=== PATIENT | female | born 1985 | race Caucasian/White ===

== ENCOUNTER 2016-07-08 04:09 | Emergency (ER) | payer MEDICAID ==
[2016-07-08] MEDS ORDERED: SODIUM CHLORIDE 0.9% 3 ML FLUSH FLUSH PRN (04:56)
[2016-07-08] MEDS ORDERED: NS 1,000 ML IV ONE ×2 (04:56→08:32)
[2016-07-08] MEDS ORDERED: MORPHINE 4 MG/ML INJECTION IV ONE ×2 (04:56→06:31)
[2016-07-08] MEDS ORDERED: ONDANSETRON HCL 4 MG/2 ML VIAL IV STA (04:56)
[2016-07-08] MEDS ORDERED: Pharmacy Review for Metformin - IV Contrast Given SCH (05:00)
[2016-07-08 05:01] LABS: LEUKOCYTES/URINE NEG (NEGATIVE); NITRITE/URINE NEG (NEGATIVE); URINE OCCULT BLOOD NEG (NEG/TRACE)
[2016-07-08 05:04] VITALS: TEMP 98.2; BMI 26.2
--- NOTE | 2016-07-08 05:08 | EDPRACDOC ---
- General Information Information Source: Patient, Surg Rn Mode Of Arrival: Ambulance - History of Present Illness Pain Location: Reports: RUQ, Periumbilical Pain Context: Reports: Spontaneous Pain Severity: Moderate Pain Quality: Reports: Aching Pain Radiation: Reports: Shoulder (RIGHT), Back Female Associated Signs & Symptoms: Reports: Nausea. Denies: Diarrhea, Dysuria , Fever Oral Intake: Normal <Paramjit Perez - Last Filed: 07/08/16 06:25> <Triston Orta - Last Filed: 07/08/16 10:36> - General Information Stated Complaint: BACK PAIN Time Seen by Provider: 07/08/16 04:50 Home Medications: Home Medications Escitalopram Oxalate [Lexapro] 10 mg PO DAILY 07/08/16 Norgestimate-Ethinyl Estradiol [Sprintec] 1 tab PO DAILY 07/08/16 Ondansetron [Zofran Odt] 4 mg PO Q6H PRN #20 tab.rapdis 07/08/16 Oxycodone HCl/Acetaminophen [Percocet 5-325 mg Tablet] 1 each PO Q4 #20 tablet 07/08/16 Allergies/Adverse Reactions: Allergies Allergy/AdvReac Type Severity Reaction Status Date / Time cefaclor [From Ceclor] Allergy Unknown UNKNOWN Verified 09/17/14 13:42 - History of Present Illness HPI: PT PRESENTS WITH ABDOMINAL PAIN. PRIMARILY RUQ BUT NOW ALSO LOWER ABDOMEN WELL. SHE HAD OUTPATIENT ULTRASOUND A FEW DAYS AGO WHICH SHOWED GALLSTONES BUT NO FLUID OR GB WALL THICKENING. (Paramjit Perez) ED Past Medical History - History Reviewed Yes Nurses notes reviewed and agree except as marked No Past Medical History: Yes Patient has no past medical history - Social Medical History Smoking Status: Never smoker Lives With: Family Lives In: Home <Paramjit Perez - Last Filed: 07/08/16 06:25> EDM Review of Systems - Review of Systems ROS Negative Except as Marked: Yes All systems reviewed and were negative except as marked Constitutional: Fatigue. negative: Fever Respiratory: negative: Shortness of Breath Cardiovascular: negative: Chest Pain Gastrointestinal: Nausea, Pain (RUQ INITIALLY; NOW SPREAD TO LOWER ABDOMEN.). negative: Diarrhea, Vomiting <Paramjit Perez - Last Filed: 07/08/16 06:25> - Physical Exam Constitutional: Alert Oriented to: Time, Person, Place - HEENT Head: negative: Deformity, Laceration Eye Exam: negative: Conjunctival Injection, Pale Conjunctiva Oropharynx: negative: Membranes Dry Nose: negative: Congestion, Discharge Neck: negative: Limited ROM - Respiratory/Cardiovascular Respiratory: Normal - CTA. negative: Accessory Muscle Use, Diminished, Tachypnea Cardiovascular: negative: Bradycardia, Tachycardia, Irregular - GI Auscultation: Normal Palpation: Normal Tenderness: Moderate, Guarding, RUQ, Suprapubic, Periumbilical - Musculoskeletal Extremities: Radial Pulse (PALPABLE) - Integumentary Skin: Warm, Dry. negative: Rash - Neurologic Memory Impaired: Normal Motor Function: Normal Mood Description: Anxious, Appropriate Thought: Coherent Perception: Normal <Paramjit Perez - Last Filed: 07/08/16 06:25> - Results 07/08/16 05:15 07/08/16 05:15 <Paramjit Perez - Last Filed: 07/08/16 06:25> - Results 07/08/16 05:15 07/08/16 05:15 <rTiston Orta - Last Filed: 07/08/16 10:36> - Results WBC 7.0 xk/uL (3.8-10.8) 07/08/16 05:15 RBC 4.92 xM/uL (4.20-5.40) 07/08/16 05:15 Hgb 13.5 g/dL (12.0-16.0) 07/08/16 05:15 Hct 40.2 % (36-47) 07/08/16 05:15 MCV 82 fL (81-99) 07/08/16 05:15 MCH 27.4 pg (27-32) 07/08/16 05:15 MCHC 33.5 g/dl (33-36) 07/08/16 05:15 RDW 16.0 % (11.5-14.5) H 07/08/16 05:15 Plt Count 438 xk/uL (130-400) H 07/08/16 05:15 MPV 7.2 fL (7.4-10.4) L 07/08/16 05:15 Neut % (Auto) 57.2 % (45-76) 07/08/16 05:15 Lymph % (Auto) 34.9 % (17-44) 07/08/16 05:15 Dickson % (Auto) 4.9 % (3-10) 07/08/16 05:15 Eos % (Auto) 2.1 % (0-5) 07/08/16 05:15 Baso % (Auto) 0.9 % (0-2) 07/08/16 05:15 Absolute Neuts (auto) 3.99 xk/uL (1.7-8.2) 07/08/16 05:15 Absolute Lymphs (auto) 2.38 xk/uL (0.65-4.75) 07/08/16 05:15 Sodium 140 mEq/L (137-146) 07/08/16 05:15 Potassium 3.7 mEq/L (3.5-5.1) 07/08/16 05:15 Chloride 104 mEq/L (98-107) 07/08/16 05:15 Carbon Dioxide 23 mMOL/L (22-33) 07/08/16 05:15 Anion Gap 17 mEq/L (8-16) H 07/08/16 05:15 BUN 8 MG/DL (7-17) 07/08/16 05:15 Creatinine 0.60 MG/DL (0.52-1.04) 07/08/16 05:15 Estimated GFR (MDRD) > 60 mL/min (>=60) 07/08/16 05:15 Glucose 95 MG/DL (70-99) 07/08/16 05:15 Calculated Osmolality 267 MOs/Kg (270-290) L 07/08/16 05:15 Calcium 9.5 MG/DL (8.4-10.2) 07/08/16 05:15 Total Bilirubin 0.7 MG/DL (0.2-1.3) 07/08/16 05:15 AST 42 IU/L (14-36) H 07/08/16 05:15 ALT 70 IU/L (9-52) H 07/08/16 05:15 Alkaline Phosphatase 129 IU/L (38-126) H 07/08/16 05:15 Total Protein 7.8 G/DL (6.3-8.2) 07/08/16 05:15 Albumin 4.5 G/DL (3.5-5.0) 07/08/16 05:15 Lipase 37 U/L (23-300) 07/08/16 05:15 Urine Color Yellow 07/08/16 04:50 Urine Clarity Clear 07/08/16 04:50 Urine pH 7.0 (5.0-8.0) 07/08/16 04:50 Ur Specific [place] 1.005 (1.003-1.035) 07/08/16 04:50 Urine Protein Neg (NEG/TRACE) 07/08/16 04:50 Urine Glucose (UA) Neg (NEGATIVE) 07/08/16 04:50 Urine Ketones 1+ (NEGATIVE) H 07/08/16 04:50 Urine Occult Blood Neg (NEG/TRACE) 07/08/16 04:50 Urine Nitrite Neg (NEGATIVE) 07/08/16 04:50 Urine Bilirubin Neg (NEGATIVE) 07/08/16 04:50 Urine Urobilinogen <2.0 MG/DL (0-1) 07/08/16 04:50 Ur Leukocyte Esterase Neg (NEGATIVE) 07/08/16 04:50 Ur Epithelial Cells 2+ 07/08/16 04:50 Urine Bacteria Few (NEG/FEW) 07/08/16 04:50 Urine Test Neg (NEGATIVE) 07/08/16 04:50 Lab Results 07/08/16 07/08/16 07/08/16 05:15 05:15 04:50 WBC 7.0 RBC 4.92 Hgb 13.5 Hct 40.2 MCV 82 MCH 27.4 MCHC 33.5 RDW 16.0 H Plt Count 438 H MPV 7.2 L Neut % (Auto) 57.2 Lymph % (Auto) 34.9 Dickson % (Auto) 4.9 Eos % (Auto) 2.1 Baso % (Auto) 0.9 Absolute Neuts (auto) 3.99 Absolute Lymphs (auto) 2.38 Sodium 140 Potassium 3.7 Chloride 104 Carbon Dioxide 23 Anion Gap 17 H BUN 8 Creatinine 0.60 Estimated GFR (MDRD) > 60 Glucose 95 Calculated Osmolality 267 L Calcium 9.5 Total Bilirubin 0.7 AST 42 H ALT 70 H Alkaline Phosphatase 129 H Total Protein 7.8 Albumin 4.5 Lipase 37 Urine Color Yellow Urine Clarity Clear Urine pH 7.0 Ur Specific [place] 1.005 Urine Protein Neg Urine Glucose (UA) Neg Urine Ketones 1+ H Urine Occult Blood Neg Urine Nitrite Neg Urine Bilirubin Neg Urine Urobilinogen <2.0 Ur Leukocyte Esterase Neg Ur Epithelial Cells 2+ Urine Bacteria Few Urine Test 07/08/16 04:50 WBC RBC Hgb Hct MCV MCH MCHC RDW Plt Count MPV Neut % (Auto) Lymph % (Auto) Dickson % (Auto) Eos % (Auto) Baso % (Auto) Absolute Neuts (auto) Absolute Lymphs (auto) Sodium Potassium Chloride Carbon Dioxide Anion Gap BUN Creatinine Estimated GFR (MDRD) Glucose Calculated Osmolality Calcium Total Bilirubin AST ALT Alkaline Phosphatase Total Protein Albumin Lipase Urine Color Urine Clarity Urine pH Ur Specific [place] Urine Protein Urine Glucose (UA) Urine Ketones Urine Occult Blood Urine Nitrite Urine Bilirubin Urine Urobilinogen Ur Leukocyte Esterase Ur Epithelial Cells Urine Bacteria Urine Test Neg (Paramjit Perez) (Triston Orta) - Departure Yes I personally saw and evaluated the patient. Disposition: Home Education/Counseling Given To: Patient, Family Member Education/Counseling Given Regarding: Diagnosis, Treatment, Prognosis, Follow Up <Paramjit Perez - Last Filed: 07/08/16 06:25> - Physician Consulted Surgery Time Called: 10:36 Provider Called: Salo Negrete Time Shift Supervisor Returned Call: 10:36 (WILL SEE IN OFFICE) <Triston Orta - Last Filed: 07/08/16 10:36> - Departure Condition: Stable Final Diagnosis: Abdominal pain, Biliary colic Cholelithiasis Qualifiers: Cholelithiasis location: gallbladder Cholecystitis presence: without cholecystitis Biliary obstruction: without biliary obstruction Qualified Code(s) : K80.20 - Calculus of gallbladder without cholecystitis without obstruction Instructions: Abdominal Pain in Women, Non-pharmacological Pain Management Therapies for Adults (GEN), Abdominal Pain (ED) Referrals: None,No Provider [Primary Care Provider] - One Week Salo Negrete MD [Staff Physician] - One Week Prescriptions: Ondansetron [Zofran Odt] 4 mg PO Q6H PRN #20 tab.rapdis PRN Reason: Nausea/Vomiting Oxycodone HCl/Acetaminophen [Percocet 5-325 mg Tablet] 1 each PO Q4 #20 tablet Additional Instructions: NO FATTY FOODS
[2016-07-08 05:27] LABS: AUTOMATED BASOPHIL 0.9 % (0-2); AUTOMATED EOSINOPHIL 2.1 % (0-5); AUTOMATED LYMPH 34.9 % (17-44); AUTOMATED MONOCYTE 4.9 % (3-10); AUTOMATED NEUTROPHIL 57.2 % (45-76); MPV 7.2 fL (7.4-10.4)
[2016-07-08 05:43] LABS: BLOOD UREA NITROGEN 8 MG/DL (7-17); CALCIUM 9.5 MG/DL (8.4-10.2); CALCULATED OSMOLALITY 267 MOs/Kg (270-290); CHLORIDE 104 mEq/L (98-107); GLUCOSE 95 MG/DL (70-99); SODIUM LEVEL 140 mEq/L (137-146); TOTAL PROTEIN 7.8 G/DL (6.3-8.2)
[2016-07-08] MEDS ORDERED: SODIUM CHLORIDE 0.9% 3 ML FLUSH FLUSH SCH (06:00)
--- NOTE | 2016-07-08 06:09 | DIRPT ---
CLINICAL DATA: Acute onset of right upper quadrant and epigastric abdominal pain. Initial encounter. EXAM: CT ABDOMEN AND PELVIS WITH CONTRAST TECHNIQUE: Multidetector CT imaging of the abdomen and pelvis was performed using the standard protocol following bolus administration of intravenous contrast. CONTRAST: 100 mL of Isovue 370 IV contrast COMPARISON: Right upper quadrant ultrasound performed 07/06/2016, and CT of the abdomen and pelvis from 12/17/2007 FINDINGS: The visualized lung bases are clear. The liver and spleen are unremarkable in appearance. The gallbladder is within normal limits. The pancreas and adrenal glands are unremarkable. The kidneys are unremarkable in appearance. There is no evidence of hydronephrosis. No renal or ureteral stones are seen. No perinephric stranding is appreciated. No free fluid is identified. The small bowel is unremarkable in appearance. The stomach is within normal limits. No acute vascular abnormalities are seen. The appendix is normal in caliber, without evidence of appendicitis. The colon is partially filled with stool and fluid, and is unremarkable in appearance. The bladder is mildly distended and grossly unremarkable. The uterus is unremarkable in appearance. The ovaries are relatively symmetric. No suspicious adnexal masses are seen. No inguinal lymphadenopathy is seen. No acute osseous abnormalities are identified. IMPRESSION: Unremarkable contrast-enhanced CT of the abdomen and pelvis. Electronically Signed By: Eemka Schwarz M.D. On: 07/08/2016 06:06
[2016-07-08 06:43] VITALS: BP 122/62; PULSE 102
[2016-07-08] MEDS ORDERED: HYDROmorphone 1 MG INJECTION IV ONE (08:32)
--- NOTE | 2016-07-08 10:19 | DIRPT ---
CLINICAL DATA: Right upper quadrant pain and back pain. EXAM: US ABDOMEN LIMITED - RIGHT UPPER QUADRANT COMPARISON: Ultrasound dated 07/06/2016 FINDINGS: Gallbladder: Numerous small gallstones. No gallbladder wall thickening. Negative sonographic Daley's sign. Common bile duct: Diameter: 3 mm, normal. Liver: No focal lesion identified. Within normal limits in parenchymal echogenicity. IMPRESSION: Numerous tiny gallstones. Otherwise normal exam. No change since the prior exam. Electronically Signed By: Liam Torres M.D. On: 07/08/2016 10:17
== END 2016-07-08 10:48 | disposition home or self-care (01) ==
LOC: ED 04:09
DX: K80.20 Calculus of gallbladder without cholecystitis without obstruction (principal)
CPT/HCPCS: 36415; 74177; 76705; 80053; 81001; 81025; 83690; 85025; 96361; 96374; 96375; 96376; 99284; A9698; J1170; J2270; J2405

== ENCOUNTER → 2016-07-11 | Day surgery (SDC) | payer MEDICAID ==
[2016-07-08 05:04] VITALS: BMI 26.2
[~2016-07-11] MED LIST: BUPIVACAINE 0.25%-EPINEPHRINE 1:200,000 30 ML ONE; CEFAZOLIN 1 GM VIAL ONE; DEXAMETHASONE 4 MG/ML VIAL IV ONE; FENTANYL 100 MCG/2 ML VIAL IV ONE; FENTANYL 100 MCG/2 ML VIAL IV PRN; FENTANYL 100 MCG/2 ML VIAL ONE; HYDROmorphone 1 MG INJECTION IV PRN; ISOVUE-300 (61%) 50 ML ONE; KETOROLAC TROMETH 30 MG/ML VIAL IM ONE; LABETALOL 20 MG/4 ML SYRINGE IV PRN; LIDOCAINE 100 MG PFS IV ONE; MEPERIDINE 25 MG/ML TUBEX IV PRN; MIDAZOLAM 2 MG/2 ML VIAL IV ONE; ONDANSETRON HCL 4 MG ODT TAB PO PRN; ONDANSETRON HCL 4 MG/2 ML VIAL IV ONE; ONDANSETRON HCL 4 MG/2 ML VIAL IV PRN; OXYCODONE HCL 5 MG TABLET ONE; PHENYLEPHRINE 10 MG/ML VIAL IC ONE; PROMETHAZINE 25 MG/ML VIAL IV PRN; PROPOFOL 200 MG/20 ML VIAL IV ONE; ROCURONIUM 50 MG/5 ML VIAL IV ONE; SUCCINYLCHOLINE 20 MG/1 ML INJ 10 ML MDV IV ONE; hydrALAZINE 20 MG/ML VIAL IV PRN
--- NOTE | 2016-07-11 11:49 | SC.ANESPOS ---
Post-Anesthesia Note LOC: [facility] Calling Post-Anesthesia Assessment: Awake, Returned to Baseline, Hemodynamically Stable , Pain Control Adequate Phase I & II Recovery Complete: Yes Apparent Anesthesia Complication: No : N PACU Discharge Time: 15:00 - Vital Signs Blood Pressure: 123/65 Pulse: 84 Resp Rate: 18 O2 Sat: 98 Temp: 97.4 F - Comments Anesthesia Discharge Time Report Time 15:00
--- NOTE | 2016-07-11 11:52 | HIM.ANES ---
Anesthesia Evaluation & Plan Diagnoses: CALCULUS OF GALLBLADDER W CHRONIC CHOLECYST W/O OBSTRUCTION (07/11/16) NAUSEA (07/11/16) - Focused Review of Systems Cardiac History: No: Hx Cardiac Disorders HEENT: Yes: Hx Vision Problem (PRESCRIPTION GLASSES), Other HEENT Problems Hx Other HEENT Surgery: DENTAL EXTRACTIONS Gastrointestinal: Yes: Hx Gastroesophageal Reflux Disease (CONTROLLED WITH PRN OTC MEDICATION), Hx Gastrointestinal Disorders Neurological/Musculoskeletal: No: Hx Neurological Disorders Psychological: Yes Hx Depression (POSTPARTEM DEPRESSION), Yes Hx Mental/ Emotional Disorders Blood/Autoimmune: No: Hx AIDS, Hx Hepatitis (type) Smoking Status: Never smoker Other Surgical History: DENTAL EXTRACTIONS C SECTION 01/02/2016 - Focused Physical Exam NPO since: after Midnight Mallampati: Class II Thyromental Distance: Greater than 3 Neck: Full Range of Motion Dental: Normal - no significant findings, Other (Prominent Upper Incisors) Cardiovascular/Chest: Normal Respiratory: Lungs clear Any problems with anesthesia, including nausea and vomiting?: No Any relatives with a history of Malignant Hyperthermia?: No Beta Tu given (if appropriate): N/A Does the patient have a history of Motion Sickness-: Yes Other: Problem List Problem Status Onset Abdominal pain Acute Biliary colic Acute Cholelithiasis Acute PT/PTT/INR/ Urine Test Neg (NEGATIVE) 07/11/16 11:25 Allergies Allergy/AdvReac Type Severity Reaction Status Date / Time cefaclor [[facility]] Allergy Severe Rash-Genera Verified 07/10/16 15:43 lized Home Medications Medication Instructions Recorded Last Taken Type Escitalopram Oxalate [Lexapro] 10 mg PO DAILY 07/08/16 07/07/16 History Norgestimate-Ethinyl Estradiol 1 tab PO DAILY 07/08/16 07/07/16 History [Sprintec] Ondansetron [Zofran Odt] 4 mg PO Q6H PRN #20 tab.rapdis 07/08/16 Unknown Rx Oxycodone HCl/Acetaminophen 1 each PO Q4 PRN 07/10/16 Unknown History [Percocet 5-325 mg Tablet] Ranitidine [Zantac] 150 mg PO DAILY PRN 07/10/16 Unknown History Height and Weight Patient's height 5 ft 1 in Patient's weight 136 lb BMI 26.2 - Anesthetic Plan Anesthesia Type: General ASA Class: 2 -: I have examined this patient and reviewed the medical record. The patient has been assessed prior to anesthesia. Risks and benefits of anesthesia and anesthetic technique options have been discussed and all questions answered. The patient accepts the risk and desires me to proceed with the planned anesthetic.
[2016-07-11 12:01] VITALS: TEMP 97.4
--- NOTE | 2016-07-11 13:43 | HIMOPRPT ---
DATE OF PROCEDURE: 07/11/16 PREOPERATIVE DIAGNOSIS: Cholecystitis and cholelithiasis. POSTOPERATIVE DIAGNOSIS: Cholecystitis and cholelithiasis. PROCEDURE: Laparoscopic cholecystectomy with intraoperative cholangiogram. SURGEON: Salo Negrete MD PAPER COLORER: Priyanka Batres. ANESTHESIA: General Anesthesia. ESTIMATED BLOOD LOSS: Minimal COMPLICATIONS: None noted. ANTIBIOTICS: Preoperative antibiotics given. INDICATIONS: BOY GREENBERG is a 31 year-old F patient with symptomatic cholelithiasis. We had explained the risks and benefits including the risk of infection, bleeding, anesthesia, as well as bowel, bile duct injury and the unforeseen complications. The patient had understood, had agreed, and was brought for the above-mentioned procedure. PROCEDURE IN DETAIL: The patient was brought to the operating room and placed on the operating room table in supine position. After identification of the patient's site, was given adequate amount of general anesthesia, then prepped and draped in sterile manner. When given okay by Anesthesia, after appropriate time-out, an Optiview trocar was placed on umbilicus in usual manner without any difficulties. Abdomen was insufflated to 15 mmHg pressure with CO2 gas, and the head was placed up and the right side placed up. Two subcostal and one subxiphoid trocars were inserted under direct vision in usual manner without any problems. Gallbladder was grasped, pulled lateral and cephalad. We dissected the gallbladder with blunt dissection, dissecting out the cystic duct and cystic artery. A Avila clamp was placed. Cholangiogram was obtained. This was felt to be normal. Cholangiocatheter was removed. Cystic duct was multiply clipped and divided. Cystic artery was multiply clipped and divided. Then, gallbladder was placed under tension, dissected free with hook cautery dissection. It was placed in an Endopouch and removed without any difficulty. The abdomen was then re-insufflated and was irrigated with copious amounts of saline and suctioned dry. Hemostasis assured. Liver bed was inspected, was hemostatic. Clips were in good position. At that point, we went ahead and deflated the abdomen, assured hemostasis at the trocar sites and brought the epigastric trocar site together with a #1 Vicryl sutures. All wounds were irrigated and brought together with monocryl. Dermabond was applied and allowed to dry. The patient was awoken and taken to recovery room in excellent condition with correct sponge counts and needle counts.
[2016-07-11] MEDS: FENTANYL 100 MCG/2 ML VIAL IV PRN ×2 (13:57→14:12)
[2016-07-11 16:10] VITALS: PULSE 84
--- NOTE | 2016-07-11 16:32 | DIRPT ---
CLINICAL DATA: Cholelithiasis and cholecystitis EXAM: INTRAOPERATIVE CHOLANGIOGRAM COMPARISON: None. FLUOROSCOPY TIME: Radiation Exposure Index (as provided by the fluoroscopic device): 3.62 mGy If the device does not provide the exposure index: Fluoroscopy Time: 25 seconds Number of Acquired Images: 3 TECHNIQUE: Cholangiographic images from the C-arm fluoroscopic device were submitted for interpretation post-operatively. Please see the procedural report for the amount of contrast and the fluoroscopy time utilized. FINDINGS: Three images were obtained and demonstrate opacification of the common bile duct. Free flow contrast material into the duodenum is seen. No retained filling defects are noted. IMPRESSION: No retained filling defects seen. Electronically Signed By: Leonel Toribio M.D. On: 07/11/2016 16:30
[2016-07-11 19:55] VITALS: BP 123/65
== END ==
LOC: SDC 11:12
PROVIDERS: ATTEND Surgery
PROC: BF031ZZ Plain Radiography of Gallbladder and Bile Ducts using Low Osmolar Contrast (ICD-10-PCS; 2016-07-11)
PROC: 0FT44ZZ Resection of Gallbladder, Percutaneous Endoscopic Approach (ICD-10-PCS; principal; 2016-07-11 12:30)
DX: K80.10 Calculus of gallbladder with chronic cholecystitis without obstruction (principal)
CPT/HCPCS: 47563; 74300; 81025; J0330; J0690; J1100; J1885; J2001; J2250; J2370; J2405; J3010; J3490